=== PATIENT | male | born 1950 | race Caucasian/White ===

== ENCOUNTER → 2023-09-27 13:46 | Outpatient (REF) | payer MEDICARE, SELFPAY | LOC: RAD 13:46 | PROVIDERS: ATTENDING PHYSICIAN Surgery; FAMILY PHYSICIAN Internal Medicine | DX: D30.01 Benign neoplasm of right kidney (principal) | CPT/HCPCS: 74176 ==

== ENCOUNTER 2024-08-14 06:13 | Day surgery (SDC) | payer MEDICARE, SELFPAY | END 2024-08-14 09:24 | disposition home or self-care (01) | LOC: GI 06:13 | PROVIDERS: ATTENDING PHYSICIAN Surgery; FAMILY PHYSICIAN Internal Medicine | DX: Z12.11 Encounter for screening for malignant neoplasm of colon (principal); K57.30 Diverticulosis of large intestine without perforation or abscess without bleeding; D12.0 Benign neoplasm of cecum; Z86.0100 Personal history of colon polyps, unspecified | CPT/HCPCS: 45385; 45381; 88305 ==

== ENCOUNTER → 2024-09-17 10:19 | Outpatient (REF) | payer MEDICARE, SELFPAY | LOC: RAD 10:19 | PROVIDERS: ATTENDING PHYSICIAN Surgery; FAMILY PHYSICIAN Internal Medicine | DX: D36.9 Benign neoplasm, unspecified site (principal) | CPT/HCPCS: 76775 ==